=== PATIENT | female | born 1955 | race Caucasian/White ===

== ENCOUNTER 2018-03-24 13:32 | Outpatient (CLI) | payer BC | END 2018-03-24 13:33 | disposition home or self-care (01) | LOC: ULT 13:32 | PROVIDERS: ATTEND Family Medicine | DX: R01.1 Cardiac murmur, unspecified (principal); I08.1 Rheumatic disorders of both mitral and tricuspid valves | CPT/HCPCS: 93306 ==

== ENCOUNTER 2018-12-21 08:46 | Outpatient (CLI) | payer BC ==
--- NOTE | 2018-12-21 11:07 | BD ---
DEXA BONE DENSITY STUDY: Date: 12/21/18 PROVIDED CLINICAL HISTORY: Screening. FINDINGS: Lumbar Spine: BMD (g/cm2) L1 1.083 T-Score: 0.8 Z-Score: 2.3 L2 1.124 T-Score: 0.9 Z-Score: 2.4 L3 1.187 T-Score: 0.9 Z-Score: 2.6 L4 1.133 T-Score: 0.7 Z-Score: 2.4 L1-L4 1.134 T-Score: 0.8 Z-Score: 2.4 Femoral Neck: 0.719 T-Score: -1.2 Z-Score: 0.2 Total Femur: 0.966 T-Score: 0.21 Z-Score: 0.3 10 YEAR FRACTURE RISK: Major osteoporotic fracture: 16% Hip fracture: 1.3% IMPRESSION: Calculated bone mineral density meets WHO criteria for osteopenia in the left femoral neck and places the patient at increased risk for fracture. POS: TPC
== END 2018-12-21 08:47 | disposition home or self-care (01) ==
LOC: BICMAMMO 08:46
PROVIDERS: ATTEND Internal Medicine Gastroenterology
DX: Z13.820 Encounter for screening for osteoporosis (principal); M19.90 Unspecified osteoarthritis, unspecified site; K21.9 Gastro-esophageal reflux disease without esophagitis; M85.852 Other specified disorders of bone density and structure, left thigh
CPT/HCPCS: 77080

== ENCOUNTER 2019-03-10 10:03 | Outpatient (CLI) | payer BC ==
--- NOTE | 2019-03-10 11:56 | ULT ---
BILATERAL RENAL ULTRASOUND COMPLETE: HISTORY: Hematuria. COMPARISON: 09/07/2014. FINDINGS: The right kidney measures 10.1 x 5.1 x 3.7 cm. The left kidney measures 10.6 x 4.0 x 4.3 cm. Small stable echogenic focus in the superior right kid eleazar unchanged from prior exam. No renal hydronephrosis. No perinephric process. Unremarkable bladd er. IMPRESSION: Stable hyperechoic focus in the upper pole of the right kidney. No hydronephrosis. POS: OFF
== END 2019-03-10 10:04 | disposition home or self-care (01) ==
LOC: BICULT 10:03
PROVIDERS: ATTEND Internal Medicine Nephrology
DX: R31.9 Hematuria, unspecified (principal); N39.0 Urinary tract infection, site not specified; N28.1 Cyst of kidney, acquired; M10.9 Gout, unspecified; D64.9 Anemia, unspecified; R93.421 Abnormal radiologic findings on diagnostic imaging of right kidney
CPT/HCPCS: 76770